=== PATIENT | female | born 1975 | race Caucasian/White ===

== ENCOUNTER 2017-07-24 12:59 | Emergency (ER) | payer OTHER, MEDICAID ==
[~2017-07-24] VITALS: Ht 165.1 cm; Wt 64.4 kg
[~2017-07-24 12:59] MED LIST: AMITRIPTYLINE H10 M3 PO; AMOXICILLIN 50500 M1 PO; AMOXICILLIN 50500 MG; AMOXIL 875 MG875 M1 PO; ATIVAN1 MG PO; AUGMENTIN 875-1 EACH PO; AUGMENTIN 875875 MG PO; BACLOFEN 10MG T10 MG PO; BENADRYL D ALL PO; BENTYL 20 MG TA20 M1 PO; CIPRO500 MG PO; CIPROFLOXACIN500 M1 PO; CLEOCIN HCL150 MG PO; DICLOFENAC SODI75 MG PO; DOXYCYCLINE 10100 MG; FLEXERIL; FLEXERIL PO; HYDROCODON-ACE1 EAC7 PO; HYDROCODONE-AP1 EAC6; HYDROCODONE-AP1 EAC6 PO; IBUPROFEN 600600 M1; IBUPROFEN 600600 M1 PO; IBUPROFEN 800800 M1 PO; IBUPROFEN200 M2 PO; KEFLEX500 MG; LEG CRAMPS; LIDOCAINE VISC100 M1 MM; LIORESAL 10 MG10 MG PO; MEDROLDOSEPACK PO; MINOCYCLINE HC100 M2 PO; MOBIC7.5 MG PO; NAPROSYN500 MG PO; NEURONTIN; NEURONTIN 300300 M1 PO; NORCO 10-325 T1 EACH PO; NORCO 5-325 TA1 EAC1 PO; NORCO 5-325 TA1 EACH PO; NORFLEX100 MG; OMNICEF PO; OXYCODON-ACETA1 EAC1 PO; OXYCODONE HCL15 MG; PENICILLIN VK500 M1 PO; PERCOCET 10-321 EACH; PERCOCET 5-3251 EACH PO; PERCOCET 7.5-31 EACH PO; PHENAZOPYRIDIN200 M2 PO; PREDNISONE 10 M10 MG; PREDNISONE 20 M20 M1 PO; PREDNISONE50 MG PO; PROZAC20 MG; PROZAC20 MG PO; ROBAXIN500 MG PO; TRAMADOL 50 MG50 MG; TRAMADOL 50 MG50 MG PO; TRAMADOL100 MG; TRAZODONE HCL100 MG PO; UNICOMPLEX M TA1 TA1; VALIUM5 MG; VICODIN 5-5001 EACH; VICODIN 5-5001 EACH PO; VICODIN ES TAB1 EACH PO; XOPENEX 0.63 MG/3 M1 IH; XOPENEX 1.25 MG/3 M1 IH; XOPENEX HF1 UDINHALE; XOPENEX HF1 UDINHALE IH; XOPENEX HFA15 GM IH; XOPENEX HFA15 GM INH; XOPENEX0.31 MG/3 IH; XOPENEX0.63 MG/3 IH; ZOFRAN ODT4 MG PO; ZPAK PO
[2017-07-24] MEDS ORDERED: AMITRIPTYLINE H10 M3 PO (13:17)
[2017-07-24] MEDS ORDERED: LIORESAL 10 MG10 MG PO (13:17)
[2017-07-24] MEDS ORDERED: ZANAFLEX2 MG PO (13:18)
[2017-07-24 13:42] LABS: URINE BILIRUBIN NEGATIVE (Negative); URINE BLOOD TRACE (Negative); URINE CLARITY CLEAR; URINE COLOR YELLOW; URINE GLUCOSE-RANDOM NEGATIVE (Negative); URINE KETONES NEGATIVE (Negative); URINE LEUKOCYTES-REFLEX NEGATIVE (Negative); URINE NITRITE-REFLEX NEGATIVE (Negative); URINE PROTEIN NEGATIVE (Negative); URINE SPECIFIC GRAVITY <= 1.005 (1.005-1.030); URINE UROBILINOGEN 0.2 E.U./dl (0.2-1.0)
[2017-07-24 13:52] LABS: AMP/METHAMP Negative (Negative); BARBITURATES Negative (Negative); BENZODIAZEPINES POSITIVE (Negative); COCAINE Negative (Negative); METHADONE Negative (Negative); OPIATES Negative (Negative); PCP Negative (Negative); THC Negative (Negative)
[2017-07-24] MEDS ORDERED: TRAMADOL 50 MG50 MG PO (15:04)
[2017-07-24] MEDS ORDERED: TORADOL 10 MG T10 MG PO (15:04)
[2017-07-24 15:13] VITALS: BP 105/55
== END 2017-07-24 15:13 | disposition home or self-care (01) ==
LOC: M.ERS 12:59
PROVIDERS: Personal Emergency Response Attendant
DX: S39.011A Strain of muscle, fascia and tendon of abdomen, initial encounter (principal); S70.02XA Contusion of left hip, initial encounter; J45.909 Unspecified asthma, uncomplicated; G43.909 Migraine, unspecified, not intractable, without status migrainosus; N80.9 Endometriosis, unspecified; F17.210 Nicotine dependence, cigarettes, uncomplicated; Z85.3 Personal history of malignant neoplasm of breast; Z88.8 Allergy status to other drugs, medicaments and biological substances; Z88.6 Allergy status to analgesic agent; Z88.5 Allergy status to narcotic agent; W10.8XXA Fall (on) (from) other stairs and steps, initial encounter; Y93.89 Activity, other specified; Y92.89 Other specified places as the place of occurrence of the external cause; Y99.8 Other external cause status

== ENCOUNTER 2018-09-14 09:15 | Emergency (ER) | payer OTHER ==
[~2018-09-14] VITALS: Ht 165.1 cm; Wt 63.5 kg
[~2018-09-14 09:15] MED LIST changes: +TORADOL 10 MG T10 MG PO; +ZANAFLEX2 MG PO
[2018-09-14 10:34] LABS: URINE BILIRUBIN NEGATIVE (Negative); URINE BLOOD NEGATIVE (Negative); URINE CLARITY CLEAR; URINE COLOR YELLOW; URINE GLUCOSE-RANDOM NEGATIVE (Negative); URINE KETONES NEGATIVE (Negative); URINE LEUKOCYTES-REFLEX NEGATIVE (Negative); URINE NITRITE-REFLEX NEGATIVE (Negative); URINE PROTEIN NEGATIVE (Negative); URINE UROBILINOGEN 0.2 E.U./dl (0.2-1.0)
[2018-09-14 10:54] LABS: ABSOLUTE BASOPHILS 0.1 thou/uL (0.0-0.2); ABSOLUTE EOSINOPHILS 0.2 thou/uL (0.0-0.7); ABSOLUTE LYMPHOCYTES 2.1 thou/uL (0.8-5.3); ABSOLUTE MONOCYTES 0.5 thou/uL (0.0-1.2); ABSOLUTE NEUTROPHILS 3.8 thou/uL (1.6-8.1); BASOPHILS 1.2 %; HEMATOCRIT 34.9 % (37.0-47.0); HEMOGLOBIN 11.8 gm/dL (12.0-15.0); LYMPHOCYTES 31.5 %; MCH 28.6 pg (26.0-34.0); MCHC 33.7 g/dL (28.0-37.0); MONOCYTES 7.9 %; MPV 8.7 fl. (7.2-11.1); NUCLEATED RBCS 0 /100WBC; PLATELET COUNT* 156 thou/uL (150-400); POLYS 56.4 %; RBC 4.11 mil/uL (4.20-5.00); RDW-CV 14.3 % (10.5-14.5); WBC 6.8 thou/uL (4.0-11.0)
[2018-09-14 11:08] LABS: ALBUMIN 3.2 g/dL (3.4-5.0); ALKALINE PHOSPHATASE 61 U/L (46-116); ANION GAP 9 mmol/L (7-16); BUN 11 mg/dL (7-18); CALCIUM 8.7 mg/dL (8.5-10.1); CHLORIDE 113 mmol/L (98-107); CO2 26 mmol/L (21-32); CREATININE 0.7 mg/dL (0.6-1.3); GLUCOSE 103 mg/dL (70-99); POTASSIUM 4.2 mmol/L (3.5-5.1); SGOT 13 U/L (15-37); SGPT 14 U/L (30-65); SODIUM 148 mmol/L (136-145); TOTAL BILIRUBIN < 0.1 mg/dL (<0.1-1.0); TOTAL PROTEIN 6.3 g/dL (6.4-8.2)
[2018-09-14] MEDS ORDERED: FLAGYL500 M1 PO (13:23)
[2018-09-14 13:34] VITALS: BP 122/55
== END 2018-09-14 13:34 | disposition home or self-care (01) ==
LOC: M.ERS 09:15
PROVIDERS: Personal Emergency Response Attendant
DX: N76.0 Acute vaginitis (principal); B96.89 Other specified bacterial agents as the cause of diseases classified elsewhere; J45.909 Unspecified asthma, uncomplicated; N80.9 Endometriosis, unspecified; G43.909 Migraine, unspecified, not intractable, without status migrainosus; F17.210 Nicotine dependence, cigarettes, uncomplicated; Z98.890 Other specified postprocedural states; Z88.5 Allergy status to narcotic agent; Z88.8 Allergy status to other drugs, medicaments and biological substances

== ENCOUNTER 2019-02-20 20:33 | Emergency (ER) | payer OTHER ==
[~2019-02-20 20:33] MED LIST changes: +FLAGYL500 M1 PO
== END 2019-02-20 21:01 | disposition left against medical advice (07) ==
LOC: M.ERS 20:33
DX: Z53.21 Procedure and treatment not carried out due to patient leaving prior to being seen by health care provider (principal)

== ENCOUNTER 2019-04-03 09:07 | Emergency (ER) | payer OTHER ==
[~2019-04-03] VITALS: Ht 165.1 cm; Wt 63.5 kg
[2019-04-03] MEDS ORDERED: IBUPROFEN 600600 M1 PO (09:30)
[2019-04-03] MEDS ORDERED: TIZANIDINE HCL2 M1 PO (09:30)
[2019-04-03] MEDS ORDERED: DIAZEPAM 2MG TAB2 MG PO (09:31)
[2019-04-03 10:02] LABS: URINE BILIRUBIN NEGATIVE (Negative); URINE BLOOD NEGATIVE (Negative); URINE CLARITY CLEAR; URINE COLOR YELLOW; URINE GLUCOSE-RANDOM NEGATIVE (Negative); URINE KETONES NEGATIVE (Negative); URINE LEUKOCYTES-REFLEX NEGATIVE (Negative); URINE NITRITE-REFLEX NEGATIVE (Negative); URINE PROTEIN NEGATIVE (Negative); URINE SPECIFIC GRAVITY <= 1.005 (1.005-1.030); URINE UROBILINOGEN 0.2 E.U./dl (0.2-1.0)
[2019-04-03] MEDS ORDERED: ZOFRAN4 MG PO (10:12)
[2019-04-03 10:33] VITALS: BP 128/52
== END 2019-04-03 10:34 | disposition home or self-care (01) ==
LOC: M.ERS 09:07
PROVIDERS: Emergency Medicine
DX: B34.9 Viral infection, unspecified (principal); J45.909 Unspecified asthma, uncomplicated; G43.909 Migraine, unspecified, not intractable, without status migrainosus; N80.9 Endometriosis, unspecified; F17.210 Nicotine dependence, cigarettes, uncomplicated; Z98.51 Tubal ligation status; Z85.3 Personal history of malignant neoplasm of breast; Z90.12 Acquired absence of left breast and nipple; Z88.6 Allergy status to analgesic agent; Z88.8 Allergy status to other drugs, medicaments and biological substances

== ENCOUNTER 2019-06-05 22:54 | Emergency (ER) | payer OTHER ==
[~2019-06-05] VITALS: Ht 165.1 cm; Wt 65.8 kg
[~2019-06-05 22:54] MED LIST changes: +DIAZEPAM 2MG TAB2 MG PO; +TIZANIDINE HCL2 M1 PO; +ZOFRAN4 MG PO
[2019-06-05] MEDS ORDERED: TRAMADOL 50 MG50 MG (23:00)
[2019-06-05 23:25] LABS: ABSOLUTE BASOPHILS 0.1 thou/uL (0.0-0.2); ABSOLUTE EOSINOPHILS 0.2 thou/uL (0.0-0.7); ABSOLUTE MONOCYTES 0.9 thou/uL (0.0-1.2); ABSOLUTE NEUTROPHILS 6.5 thou/uL (1.6-8.1); BASOPHILS 0.8 %; EOSINOPHILS 2.2 %; HEMATOCRIT 35.3 % (37.0-47.0); HEMOGLOBIN 11.9 gm/dL (12.0-15.0); LYMPHOCYTES 28.1 %; MCHC 33.9 g/dL (28.0-37.0); MCV 85.6 fL (80.0-100.0); MONOCYTES 8.2 %; MPV 9.2 fl. (7.2-11.1); NUCLEATED RBCS 0 /100WBC; PLATELET COUNT* 181 thou/uL (150-400); POLYS 60.7 %; RBC 4.12 mil/uL (4.20-5.00); WBC 10.7 thou/uL (4.0-11.0)
[2019-06-05 23:37] VITALS: BP 147/70
[2019-06-05 23:49] LABS: CALCIUM 7.9 mg/dL (8.5-10.1); CREATININE 0.6 mg/dL (0.6-1.3); POTASSIUM 3.8 mmol/L (3.5-5.1)
[2019-06-05 23:53] LABS: APTT 26.8 Seconds (25.0-31.3); PROTIME 10.7 Seconds (9.20-11.50)
[2019-06-06 00:03] LABS: ALBUMIN 3.5 g/dL (3.4-5.0); CK-MB MASS 1.1 ng/mL (<0.5-3.6); MAGNESIUM 1.8 mg/dL (1.8-2.4); TOTAL BILIRUBIN 0.1 mg/dL (<0.1-1.0); TOTAL PROTEIN 6.4 g/dL (6.4-8.2)
--- NOTE | 2019-06-07 12:27 | EKG ---
[place] [address] ELECTROCARDIOGRAM REPORT Name: CHANTE AHMADI Room: [facility]#: [id number] Admission: 06/05/19 Attend Phys: Discharge: 06/05/19 Date of : 79 Report #: [id number] THIS REPORT FOR: //name// [facility] ED Test Date: 2019-06-05 Test Time: 22:59:34 Pat Name: CHANTE AHMADI Department: Room: Gender: F Inspector [employer]: : 1975 Requested By: Boy Jeronimo Order Number: [id number] MD: Napoleon Silverman Measurements Intervals [place] Rate: 73 P: 36 WI: 136 QRS: 61 QRSD: 97 T: 47 QT: 400 QTc: 441 Interpretive Statements Sinus rhythm Compared to ECG 02/20/2012 21:34:01 Sinus bradycardia no longer present Early repolarization no longer present Electronically Signed On 06-07-2019 12:26:59 HAND ENGRAVER by Napoleon Silverman [email or web address] <ELECTRONICALLY SIGNED> By: Napoleon Silverman MD, [facility] 06/07/19 1226 2259 225 Napoleon Silverman MD, FACC /EPI
== END 2019-06-05 23:37 | disposition left against medical advice (07) ==
LOC: M.ERS 22:54
PROVIDERS: Family Medicine
DX: R07.89 Other chest pain (principal); J45.909 Unspecified asthma, uncomplicated; G43.909 Migraine, unspecified, not intractable, without status migrainosus; F17.210 Nicotine dependence, cigarettes, uncomplicated; Z86.14 Personal history of Methicillin resistant Staphylococcus aureus infection; Z98.890 Other specified postprocedural states; Z88.5 Allergy status to narcotic agent; Z88.8 Allergy status to other drugs, medicaments and biological substances

== ENCOUNTER 2019-12-27 15:02 | Emergency (ER) | payer OTHER ==
[~2019-12-27] VITALS: Ht 165.1 cm; Wt 63.5 kg
[2019-12-27 15:27] LABS: ABSOLUTE BASOPHILS 0.1 thou/uL (0.0-0.2); ABSOLUTE EOSINOPHILS 0.1 thou/uL (0.0-0.7); ABSOLUTE LYMPHOCYTES 2.9 thou/uL (0.8-5.3); ABSOLUTE MONOCYTES 0.6 thou/uL (0.0-1.2); ABSOLUTE NEUTROPHILS 5.5 thou/uL (1.6-8.1); BASOPHILS 0.9 %; EOSINOPHILS 0.8 %; HEMATOCRIT 40.1 % (37.0-47.0); HEMOGLOBIN 13.6 gm/dL (12.0-15.0); LYMPHOCYTES 31.7 %; MCH 29.1 pg (26.0-34.0); MCHC 33.9 g/dL (28.0-37.0); MONOCYTES 6.4 %; MPV 9.7 fl. (7.2-11.1); NUCLEATED RBCS 0 /100WBC; PLATELET COUNT* 175 thou/uL (150-400); POLYS 60.2 %; RBC 4.67 mil/uL (4.20-5.00); RDW-CV 13.4 % (10.5-14.5); WBC 9.1 thou/uL (4.0-11.0)
[2019-12-27 15:33] LABS: URINE BILIRUBIN NEGATIVE (Negative); URINE BLOOD TRACE (Negative); URINE CLARITY CLEAR; URINE COLOR YELLOW; URINE GLUCOSE-RANDOM NEGATIVE (Negative); URINE KETONES NEGATIVE (Negative); URINE LEUKOCYTES-REFLEX NEGATIVE (Negative); URINE NITRITE-REFLEX NEGATIVE (Negative); URINE PROTEIN NEGATIVE (Negative); URINE UROBILINOGEN 0.2 E.U./dl (0.2-1.0)
[2019-12-27 15:39] LABS: APTT 26.4 Seconds (25.0-31.3); INR 1.1; PROTIME 11.3 Seconds (9.20-11.50)
[2019-12-27 15:41] LABS: CALCIUM 8.3 mg/dL (8.5-10.1); CREATININE 0.7 mg/dL (0.6-1.3); POTASSIUM 3.3 mmol/L (3.5-5.1)
[2019-12-27 15:41] LABS: AMP/METHAMP Negative (Negative); BARBITURATES Negative (Negative); BENZODIAZEPINES POSITIVE (Negative); COCAINE Negative (Negative); METHADONE Negative (Negative); OPIATES POSITIVE (Negative); PCP Negative (Negative); THC Negative (Negative)
[2019-12-27 15:51] LABS: MAGNESIUM 1.9 mg/dL (1.8-2.4); TOTAL BILIRUBIN 0.2 mg/dL (<0.1-1.0); TOTAL PROTEIN 7.5 g/dL (6.4-8.2)
[2019-12-27] MEDS ORDERED: NORCO 5-325 TA1 EAC2 PO (16:12)
[2019-12-27] MEDS ORDERED: CEFDINIR300 MG PO (16:12)
[2019-12-27] MEDS ORDERED: LEVALBUTEROL TA15 GM INH (16:37)
[2019-12-27] MEDS ORDERED: ONDANSETRON HCL4 M2 PO (16:37)
[2019-12-27 16:45] VITALS: BP 120/70
--- NOTE | 2019-12-27 17:40 | EKG ---
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 : 1975 Requested By: Barbara Tyler Order Number: [id number] MD: Miguel White Measurements Intervals [place] Rate: 71 P: 41 HI: 132 QRS: 73 QRSD: 93 T: 47 QT: 412 QTc: 448 Interpretive Statements Sinus rhythm Ventricular premature complex Consider left ventricular hypertrophy Compared to ECG 06/05/2019 22:59:34 Ventricular premature complex(es) now present Electronically Signed On 12-27-2019 17:40:28 CDT by Miguel White [email or web address] <ELECTRONICALLY SIGNED> By: Miguel White MD, FACC 12/27/19 1740 1521 1521 Miguel White MD, [facility] /EPI
== END 2019-12-27 16:46 | disposition home or self-care (01) ==
LOC: M.ERS 15:02
PROVIDERS: Nurse Practitioner Family
DX: S39.012A Strain of muscle, fascia and tendon of lower back, initial encounter (principal); J98.8 Other specified respiratory disorders; R07.89 Other chest pain; R30.0 Dysuria; J45.909 Unspecified asthma, uncomplicated; N80.9 Endometriosis, unspecified; G43.909 Migraine, unspecified, not intractable, without status migrainosus; F17.210 Nicotine dependence, cigarettes, uncomplicated; Z98.51 Tubal ligation status; Z85.3 Personal history of malignant neoplasm of breast; Z90.12 Acquired absence of left breast and nipple; Z86.14 Personal history of Methicillin resistant Staphylococcus aureus infection; Z98.82 Breast implant status; Z88.6 Allergy status to analgesic agent; Z88.8 Allergy status to other drugs, medicaments and biological substances; X58.XXXA Exposure to other specified factors, initial encounter; Y93.89 Activity, other specified; Y92.89 Other specified places as the place of occurrence of the external cause; Y99.8 Other external cause status

== ENCOUNTER 2020-12-13 17:38 | Emergency (ER) | payer OTHER ==
[~2020-12-13] VITALS: Ht 165.1 cm; Wt 70.3 kg
[~2020-12-13 17:38] MED LIST changes: +CEFDINIR300 MG PO; +LEVALBUTEROL TA15 GM INH; +NORCO 5-325 TA1 EAC2 PO; +ONDANSETRON HCL4 M2 PO
[2020-12-13] MEDS ORDERED: PERCOCET 5-3251 EACH PO (19:27)
[2020-12-13 19:56] VITALS: BP 106/47
== END 2020-12-13 19:57 | disposition home or self-care (01) ==
LOC: M.ERS 17:38
DX: M25.562 Pain in left knee (principal); G43.909 Migraine, unspecified, not intractable, without status migrainosus; N80.9 Endometriosis, unspecified; F17.210 Nicotine dependence, cigarettes, uncomplicated; Z88.5 Allergy status to narcotic agent; Z88.8 Allergy status to other drugs, medicaments and biological substances; Z98.51 Tubal ligation status; Z86.14 Personal history of Methicillin resistant Staphylococcus aureus infection; Z85.3 Personal history of malignant neoplasm of breast